=== PATIENT | male | born 1965 | race Asian ===

== ENCOUNTER 2020-12-06 15:07 | Emergency (ER) | payer OTHER ==
[~2020-12-06] VITALS: Ht 175.3 cm; Wt 83.9 kg
[2020-12-06 15:25] VITALS: BP 135/76; TEMP 98.6
== END 2020-12-06 17:13 | disposition home or self-care (01) ==
LOC: ED 15:07
DX: S63.690A Other sprain of right index finger, initial encounter (principal); X50.9XXA Other and unspecified overexertion or strenuous movements or postures, initial encounter; Y92.89 Other specified places as the place of occurrence of the external cause
CPT/HCPCS: 96372; 99283; J1885